=== PATIENT | male | born 1955 | race Caucasian/White ===

== ENCOUNTER 2017-03-05 22:23 | Inpatient (IN) | payer MEDICAID ==
[~2017-03-05] VITALS: Ht 154.4 cm; Wt 69.1 kg
[2017-03-05 23:41] LABS: Albumin 3.3 g/dL (3.4-5.0); BUN/Creatinine Ratio 12.8; Calcium 8.5 mg/dL (8.5-10.1); Magnesium 1.5 mg/dL (1.6-2.6); Potassium 4.1 mmol/L (3.5-5.1)
[2017-03-05 23:46] LABS: Basophils # (auto) 0 uL; Basophils % (auto) 0.3 % (0.0-2.0); CONDITION Y; Eosinophils # (auto) 0.1 uL; Eosinophils % (auto) 0.7 % (0.0-7.0); Hematocrit 47.5 % (41.0-53.0); Hemoglobin 15.8 g/dL (13.5-17.5); Lymphocytes # (auto) 1.8 uL; Lymphocytes % (auto) 14.7 % (10.0-50.0); Mean Corpuscular Hemoglobin 32.1 pg (28.0-32.0); Mean Corpuscular Hgb Conc. 33.1 g/dL (32.0-36.0); Mean Corpuscular Volume 96.9 fL (80.0-100.0); Monocytes # (auto) 1.1 uL; Monocytes % (auto) 9.2 % (0.0-12.0); Neutrophils % (auto) 75.1 % (37.0-80.0); Platelet Count (auto) 193 10^3/uL (140-450); Red Cell Distribution Width 17.1 % (11.6-16.0); White Blood Cell 11.9 10^3/uL (4.4-10.8)
[2017-03-05 23:58] LABS: Bilirubin, Total 1.9 mg/dL (0.2-1.0); Total Protein 6.3 g/dL (6.4-8.2)
[2017-03-06] MEDS ORDERED: ONDANSETRON HCL 4 MG/2 ML VIAL IV ONE (02:30)
[2017-03-06] MEDS ORDERED: HYDROmorphone HCL 2 MG/ML VL IV ONE (02:30)
[2017-03-06] MEDS: SODIUM CHLORIDE 0.9% 1,000 ML IV SCH ×2 (05:37→14:07)
[2017-03-06] MEDS ORDERED: NITROGLYCERIN 0.4 MG SL TAB SL PRN (05:45)
[2017-03-06] MEDS ORDERED: ONDANSETRON HCL 4 MG/2 ML VIAL IV PRN (05:45)
[2017-03-06] MEDS ORDERED: MORPHINE SULF INJ 2 MG/ML SYRINGE 1ML IV PRN ×2 (05:45)
[2017-03-06] MEDS: FAMOTIDINE (10MG/ML) 2ML VL IV SCH ×2 (05:45→17:33)
[2017-03-06] MEDS ORDERED: cefTRIAXone 1GM/50ML D5W 50 ML IV SCH (06:00)
[2017-03-06] MEDS: metroNIDAZOLE 500MG/100ML 100 ML IV SCH ×2 (06:00→12:29)
[2017-03-06 06:09] LABS: INR 1.15 (0.9-1.15); Partial Thromboplastin Time 23.8 sec (22.64-33.71)
[2017-03-06 06:10] LABS: Prothrombin Time 12.5 sec (9.37-12.3)
[2017-03-06 09:20] VITALS: BP 152/86
[2017-03-06] MEDS: ENALAPRIL MALEATE 10 MG TAB PO SCH (10:00)
[2017-03-06] MEDS: METOPROLOL TARTRATE 25 MG TAB PO SCH ×2 (10:00→22:21)
[2017-03-06] MEDS ORDERED: GASTROGRAFIN 120 ML SOL ONE (10:27)
[2017-03-06 13:22] VITALS: BP 128/77
[2017-03-06 16:56] VITALS: BP 125/67
[2017-03-06 22:00] VITALS: BP 122/81
[2017-03-06] MEDS: ATORVASTATIN 20 MG TAB PO SCH (22:20)
[2017-03-07] MEDS: SODIUM CHLORIDE 0.9% 1,000 ML IV SCH ×2 (00:56→05:26)
[2017-03-07] MEDS: FAMOTIDINE (10MG/ML) 2ML VL IV SCH ×2 (05:26→18:02)
[2017-03-07 05:30] VITALS: BP 117/80
[2017-03-07 06:11] LABS: Basophils # (auto) 0 uL; Basophils % (auto) 0.1 % (0.0-2.0); CONDITION Y; Eosinophils # (auto) 0.3 uL; Eosinophils % (auto) 3.4 % (0.0-7.0); Hemoglobin 13.1 g/dL (13.5-17.5); Lymphocytes # (auto) 1.7 uL; Lymphocytes % (auto) 16.8 % (10.0-50.0); Mean Corpuscular Hemoglobin 32.6 pg (28.0-32.0); Mean Corpuscular Hgb Conc. 33.5 g/dL (32.0-36.0); Mean Corpuscular Volume 97.4 fL (80.0-100.0); Monocytes # (auto) 0.9 uL; Neutrophils # (auto) 7.2 uL; Neutrophils % (auto) 70.7 % (37.0-80.0); Platelet Count (auto) 198 10^3/uL (140-450); Red Cell Distribution Width 16.9 % (11.6-16.0); White Blood Cell 10.2 10^3/uL (4.4-10.8)
[2017-03-07 06:37] LABS: Albumin 2.6 g/dL (3.4-5.0); BUN/Creatinine Ratio 18.5; Bilirubin, Total 1.8 mg/dL (0.2-1.0); Calcium 7.7 mg/dL (8.5-10.1); Potassium 4.2 mmol/L (3.5-5.1); Total Protein 5.2 g/dL (6.4-8.2)
[2017-03-07 09:00] VITALS: BP 148/83
[2017-03-07] MEDS ORDERED: LEVO750T64 PO (09:27)
[2017-03-07] MEDS ORDERED: METH4TAB7 PO (09:30)
[2017-03-07] MEDS ORDERED: DOXY100C2 PO (09:30)
[2017-03-07] MEDS: METOPROLOL TARTRATE 25 MG TAB PO SCH ×2 (09:32→22:00)
[2017-03-07] MEDS: ENALAPRIL MALEATE 10 MG TAB PO SCH (09:32)
[2017-03-07 12:45] LABS: Urine RBC None Seen /hpf (0 - 3)
[2017-03-07 13:00] VITALS: BP 126/75
[2017-03-07 13:00] LABS: Urine Bilirubin Negative (Negative); Urine Blood Negative /uL (Negative); Urine Color Yellow (Yellow); Urine Glucose Normal (Normal); Urine Ketone Negative (Negative); Urine Nitrite Negative (Negative); Urine Urobilinogen Normal (Negative)
[2017-03-07 17:00] VITALS: BP 124/77
[2017-03-07 22:00] VITALS: BP 134/84
[2017-03-07] MEDS: ATORVASTATIN 20 MG TAB PO SCH (22:22)
[2017-03-08 05:00] VITALS: BP 148/88
[2017-03-08] MEDS: FAMOTIDINE (10MG/ML) 2ML VL IV SCH ×2 (06:17→19:03)
[2017-03-08] MEDS: SODIUM CHLORIDE 0.9% 1,000 ML IV SCH ×2 (06:17→15:51)
[2017-03-08 06:58] LABS: INR 1.15 (0.9-1.15); Partial Thromboplastin Time 30.2 sec (22.64-33.71)
[2017-03-08 06:59] LABS: Prothrombin Time 12.6 sec (9.37-12.3)
[2017-03-08] MEDS ORDERED: LIDOCAINE 1% HCL (LOCAL ANESTH.) INJ 20ML MDV ONE (08:42)
[2017-03-08] MEDS ORDERED: ceFAZolin 1GM/50ML D5W 50 ML IV ONE (08:43)
[2017-03-08 09:02] VITALS: BP 144/99
[2017-03-08] MEDS ORDERED: IPRATROPIUM BROM 0.5 MG/2.5ML INH SOL NEB ONE (09:45)
[2017-03-08] MEDS ORDERED: ALBUTEROL SULF 2.5 MG/0.5ML(0.5%) NEB SOLN NEB ONE (09:45)
[2017-03-08] MEDS ORDERED: ADENOSINE 58 MG in GIVE UN-DILUTED 0 ML IV ONE (09:45)
[2017-03-08] MEDS: METOPROLOL TARTRATE 25 MG TAB PO SCH ×3 (10:00→22:01)
[2017-03-08] MEDS: ENALAPRIL MALEATE 10 MG TAB PO SCH (10:00)
[2017-03-08] MEDS ORDERED: IPRATROPIUM BROM 0.5 MG/2.5ML INH SOL ONE (12:53)
[2017-03-08] MEDS ORDERED: ALBUTEROL SULF 2.5 MG/0.5ML(0.5%) NEB SOLN ONE (12:53)
[2017-03-08 14:00] VITALS: BP 137/96
[2017-03-08 17:02] VITALS: BP 111/74
[2017-03-08 21:30] VITALS: BP 152/82
[2017-03-08] MEDS: ATORVASTATIN 20 MG TAB PO SCH (22:01)
[2017-03-09] VITALS (7 sets, daily range): BP systolic 107–140; BP diastolic 49–80
[2017-03-09] MEDS: SODIUM CHLORIDE 0.9% 1,000 ML IV SCH ×3 (02:25→21:48)
[2017-03-09] MEDS: FAMOTIDINE (10MG/ML) 2ML VL IV SCH ×2 (05:32→17:42)
[2017-03-09] MEDS: METOPROLOL TARTRATE 25 MG TAB PO SCH ×2 (09:55→21:48)
[2017-03-09] MEDS: ENALAPRIL MALEATE 10 MG TAB PO SCH (09:56)
[2017-03-09] MEDS: ATORVASTATIN 20 MG TAB PO SCH (21:48)
[2017-03-10 06:04] VITALS: BP 137/90
[2017-03-10] MEDS: FAMOTIDINE (10MG/ML) 2ML VL IV SCH ×2 (06:06→18:00)
[2017-03-10 08:00] VITALS: BP 139/74
[2017-03-10 08:50] VITALS: BP 115/82
[2017-03-10] MEDS: METOPROLOL TARTRATE 25 MG TAB PO SCH ×2 (09:23→22:10)
[2017-03-10] MEDS: SODIUM CHLORIDE 0.9% 1,000 ML IV SCH ×2 (09:23→17:59)
[2017-03-10] MEDS: ENALAPRIL MALEATE 10 MG TAB PO SCH (10:00)
[2017-03-10] MEDS ORDERED: ALBUTEROL SULF 2.5 MG/0.5ML(0.5%) NEB SOLN NEB ONE (10:00)
[2017-03-10] MEDS ORDERED: IPRATROPIUM BROM 0.5 MG/2.5ML INH SOL NEB ONE (10:00)
[2017-03-10] MEDS ORDERED: ceFAZolin 1GM/50ML D5W 50 ML IV ONE (10:05)
[2017-03-10] MEDS ORDERED: ALBUTEROL SULF 2.5 MG/0.5ML(0.5%) NEB SOLN ONE (10:06)
[2017-03-10] MEDS ORDERED: IPRATROPIUM BROM 0.5 MG/2.5ML INH SOL ONE (10:06)
[2017-03-10] MEDS ORDERED: MIDAZOLAM HCL 1MG/1ML-2 ML VIAL ONE (12:10)
[2017-03-10] MEDS ORDERED: fentaNYL CITRATE 100 MCG/2 ML VL ONE (12:10)
[2017-03-10] MEDS ORDERED: PROPOFOL 10 MG/ML 20 ML IV ONE (12:10)
[2017-03-10] MEDS ORDERED: ONDANSETRON HCL 4 MG/2 ML VIAL ONE (12:10)
[2017-03-10] MEDS ORDERED: LIDOCAINE W/ EPINEPHRINE 1 % INJ 30ML ONE (12:12)
[2017-03-10] MEDS ORDERED: BUPIVACAINE 0.25% INJ 50ML VIAL ONE (12:13)
[2017-03-10] MEDS ORDERED: ROCURONIUM 10MG/ML 10ML VIAL IV ONE (12:20)
[2017-03-10] MEDS ORDERED: MEPERIDINE HCL (50 MG/ML) 1 ML VIAL IV ONE (12:20)
[2017-03-10] MEDS ORDERED: SUCCINYLCHOLINE CHLORIDE 20 MG/ML 10ML VIAL IV ONE (12:20)
[2017-03-10] MEDS: KETOROLAC TROMETH 30 MG/ML 1ML VIAL IV ONE ×2 (13:15→14:08)
[2017-03-10] MEDS ORDERED: METOCLOPRAMIDE HCL 5MG/ml INJ 2ml VIAL IV ONE (13:15)
[2017-03-10] MEDS: HYDROmorphone HCL 2 MG/ML VL IV PRN ×2 (13:58→14:18)
[2017-03-10 16:49] VITALS: BP 95/58
[2017-03-10] MEDS: ATORVASTATIN 20 MG TAB PO SCH (22:09)
[2017-03-10 22:17] VITALS: BP 103/57
[2017-03-11] MEDS: SODIUM CHLORIDE 0.9% 1,000 ML IV SCH (03:14)
[2017-03-11 05:37] VITALS: BP 104/61
[2017-03-11] MEDS: FAMOTIDINE (10MG/ML) 2ML VL IV SCH (05:40)
[2017-03-11 08:00] VITALS: BP 119/70
[2017-03-11 08:04] VITALS: BP 104/61
[2017-03-11] MEDS: METOPROLOL TARTRATE 25 MG TAB PO SCH (09:23)
[2017-03-11] MEDS: ENALAPRIL MALEATE 10 MG TAB PO SCH (10:28)
[2017-03-11 12:00] VITALS: BP 112/77
[2017-03-11 13:39] VITALS: BP 119/70
== END 2017-03-11 14:40 | disposition home or self-care (01) | DRG 710 ==
LOC: ER 22:32 → TELE 22:33 → TELE-WESTW 03-06 08:50 → TELE-E-ADS 03-06 09:00 → TELE-WESTW 03-06 10:42
PROVIDERS: ADMIT Family Medicine; ATTEND Internal Medicine
PROC: 0YQ60ZZ Repair Left Inguinal Region, Open Approach (ICD-10-PCS; principal; 2017-03-10 12:20)
DX: A41.9 Sepsis, unspecified organism (principal); K40.30 Unilateral inguinal hernia, with obstruction, without gangrene, not specified as recurrent; K76.0 Fatty (change of) liver, not elsewhere classified; I10 Essential (primary) hypertension; I25.10 Atherosclerotic heart disease of native coronary artery without angina pectoris; J44.9 Chronic obstructive pulmonary disease, unspecified; S70.12XA Contusion of left thigh, initial encounter; K57.30 Diverticulosis of large intestine without perforation or abscess without bleeding; F17.210 Nicotine dependence, cigarettes, uncomplicated; Z90.49 Acquired absence of other specified parts of digestive tract; I25.2 Old myocardial infarction; Z87.01 Personal history of pneumonia (recurrent); Z82.49 Family history of ischemic heart disease and other diseases of the circulatory system
CPT/HCPCS: 36415; 71010; 71020; 74176; 74250; 78452; 80053; 80307; 81001; 83690; 83735; 84484; 85025; 85610; 85730; 86850; 86900; 86901; 87081; 93005; 93017; 94640; 96374; 96375; J0153; J0330; J0690; J0696; J1885; J2001; J2250; J2405; J2704; J3490

== ENCOUNTER 2017-11-16 12:45 | Emergency (ER) | payer MEDICAID ==
[~2017-11-16] VITALS: Ht 182.9 cm; Wt 72.6 kg
[~2017-11-16 12:45] MED LIST: DOXY100C2 PO; LEVO750T64 PO; METH4TAB7 PO
[2017-11-16 13:45] LABS: Basophils # (auto) 0 uL; Eosinophils # (auto) 0 uL; Eosinophils % (auto) 0.4 % (0.0-7.0); Hemoglobin 20.4 g/dL (13.5-17.5); Mean Corpuscular Hemoglobin 33.1 pg (28.0-32.0); Platelet Count (auto) 145 10^3/uL (140-450); Red Blood Cells 6.16 10^6/uL (4.5-5.90); White Blood Cell 8.6 10^3/uL (4.4-10.8)
[2017-11-16 13:47] LABS: Basophils % (auto) 0.6 % (0.0-2.0); Lymphocytes # (auto) 1.2 uL; Lymphocytes % (auto) 13.6 % (10.0-50.0); Mean Corpuscular Hgb Conc. 33.5 g/dL (32.0-36.0); Mean Corpuscular Volume 98.7 fL (80.0-100.0); Monocytes # (auto) 0.8 uL; Monocytes % (auto) 8.8 % (0.0-12.0); Neutrophils # (auto) 6.6 uL; Neutrophils % (auto) 76.6 % (37.0-80.0); Red Cell Distribution Width 17.4 % (11.8-14.3)
[2017-11-16 13:49] LABS: Hematocrit 60.8 % (41.0-53.0)
[2017-11-16 14:09] LABS: Albumin 3.8 g/dL (3.4-5.0); BUN/Creatinine Ratio 6.3; Bilirubin, Total 2.1 mg/dL (0.2-1.0); Calcium 8.7 mg/dL (8.5-10.1); Magnesium 1.8 mg/dL (1.6-2.6); Potassium 4.2 mmol/L (3.5-5.1); Total Protein 7.2 g/dL (6.4-8.2)
[2017-11-16] MEDS ORDERED: SODIUM CHLORIDE 0.9% 1,000 ML IV ONE ×2 (14:31)
[2017-11-16 14:56] VITALS: BP 145/107
== END 2017-11-16 16:46 | disposition left against medical advice (07) ==
LOC: ER 12:52
DX: M79.601 Pain in right arm (principal); E86.0 Dehydration; K70.9 Alcoholic liver disease, unspecified; R51 Headache; J44.9 Chronic obstructive pulmonary disease, unspecified; I10 Essential (primary) hypertension; F17.210 Nicotine dependence, cigarettes, uncomplicated
CPT/HCPCS: 36415; 70450; 76705; 80053; 83735; 84484; 85025; 93005; 96360; 96361; 99285; J7030

== ENCOUNTER 2018-05-14 10:09 | Emergency (ER) | payer MEDICARE, MEDICAID ==
[~2018-05-14] VITALS: Ht 182.9 cm; Wt 59.0 kg
[~2018-05-14 10:09] MED LIST changes: -DOXY100C2 PO; -LEVO750T64 PO
[2018-05-14 11:06] LABS: Basophils # (auto) 0.1 uL; Basophils % (auto) 0.7 % (0.0-2.0); Eosinophils # (auto) 0.4 uL; Hematocrit 39.6 % (41.0-53.0); Hemoglobin 13.3 g/dL (13.5-17.5); Lymphocytes # (auto) 2.4 uL; Lymphocytes % (auto) 29.3 % (10.0-50.0); Mean Corpuscular Hemoglobin 31.7 pg (28.0-32.0); Mean Corpuscular Hgb Conc. 33.7 g/dL (32.0-36.0); Mean Corpuscular Volume 94.2 fL (80.0-100.0); Monocytes # (auto) 0.5 uL; Monocytes % (auto) 6.5 % (0.0-12.0); Neutrophils # (auto) 4.9 uL; Neutrophils % (auto) 58.5 % (37.0-80.0); Nucleated Red Blood Cells % 0.2 %; Platelet Count (auto) 259 10^3/uL (140-450); Red Cell Distribution Width 14.7 % (11.8-14.3); White Blood Cell 8.3 10^3/uL (4.4-10.8)
[2018-05-14 11:24] LABS: Albumin 3.4 g/dL (3.4-5.0); Anion Gap 7 (5-15); Blood Urea Nitrogen 11 mg/dL (7-18); Calcium 8.2 mg/dL (8.5-10.1); Carbon Dioxide 24 mmol/L (21-32); Chloride 107 mmol/L (98-107); Glucose 92 mg/dL (74-106); Potassium 3.7 mmol/L (3.5-5.1); Sodium 138 mmol/L (136-145)
[2018-05-14 11:29] LABS: Alanine Aminotransferase 17 U/L (16-61); Alkaline Phosphatase 72 U/L (45-117); Aspartate Aminotransferase 14 U/L (15-37); BUN/Creatinine Ratio 8.3; Bilirubin, Total 0.7 mg/dL (0.2-1.0); GFR African American 69 mL/min; GFR Non-African American 57 mL/min; Total Protein 6.6 g/dL (6.4-8.2)
[2018-05-14] MEDS ORDERED: SODIUM CHLORIDE 0.9% 1,000 ML IV ONE (12:13)
[2018-05-14] MEDS ORDERED: ALBUTEROL SULF 2.5 MG/0.5ML(0.5%) NEB SOLN NEB ONE (12:15)
[2018-05-14] MEDS ORDERED: IPRATROPIUM BROM 0.5 MG/2.5ML INH SOL NEB ONE (12:15)
[2018-05-14 13:03] LABS: Urine Bacteria FEW /hpf (None Seen); Urine Blood Negative /uL (Negative); Urine Mucus FEW (None Seen); Urine Specific Gravity 1.022 (1.001-1.035); Urine WBC 2 /hpf (0 - 3)
[2018-05-14 13:57] VITALS: BP 102/68
== END 2018-05-14 14:57 | disposition home or self-care (01) ==
LOC: ER 10:09
DX: J44.1 Chronic obstructive pulmonary disease with (acute) exacerbation (principal); E03.9 Hypothyroidism, unspecified; I10 Essential (primary) hypertension; Z86.73 Personal history of transient ischemic attack (TIA), and cerebral infarction without residual deficits; Z90.49 Acquired absence of other specified parts of digestive tract; Z87.891 Personal history of nicotine dependence
CPT/HCPCS: 36415; 71045; 80053; 81001; 83735; 84443; 84484; 85025; 85379; 93005; 94640; 94761; 99285; J7030; J7611; J7644

== ENCOUNTER → 2019-10-06 | Emergency (ER) | payer MEDICARE ==
[~2019-10-06] VITALS: Ht 188 cm; Wt 51.7 kg
[~2019-10-06] MED LIST changes: +AMIO200T33 PO; +LOVA20TA4 PO
[2019-10-06 13:14] VITALS: BP 110/65
[2019-10-06 15:04] LABS: Basophils # (auto) 0 10 ^3/uL (0-0.2); Basophils % (auto) 0.4 % (0.0-2.0); Eosinophils # (auto) 0.1 10 ^3/uL (0-0.8); Eosinophils % (auto) 1.6 % (0.0-7.0); Hematocrit 36.7 % (41.0-53.0); Lymphocytes # (auto) 1.4 10 ^3/uL (0.4-5.4); Lymphocytes % (auto) 19.8 % (10.0-50.0); Mean Corpuscular Hemoglobin 30.2 pg (28.0-32.0); Mean Corpuscular Hgb Conc. 32.5 g/dL (32.0-36.0); Mean Corpuscular Volume 92.8 fL (80.0-100.0); Monocytes # (auto) 0.5 10 ^3/uL (0-1.3); Monocytes % (auto) 7.1 % (0.0-12.0); Neutrophils # (auto) 5.1 10 ^3/uL (1.6-8.6); Neutrophils % (auto) 71.1 % (37.0-80.0); Nucleated Red Blood Cells % 0.1 %; Platelet Count (auto) 441 10^3/uL (140-450); Red Blood Cells 3.96 10^6/uL (4.5-5.90); Red Cell Distribution Width 16.2 % (11.8-14.3); White Blood Cell 7.2 10^3/uL (4.4-10.8)
[2019-10-06 15:19] LABS: Albumin 3.1 g/dL (3.4-5.0); Anion Gap 5 (5-15); Blood Urea Nitrogen 25 mg/dL (7-18); Calcium 8.8 mg/dL (8.5-10.1); Carbon Dioxide 22 mmol/L (21-32); Chloride 111 mmol/L (98-107); Glucose 99 mg/dL (74-106); Potassium 4.1 mmol/L (3.5-5.1); Sodium 138 mmol/L (136-145)
[2019-10-06 15:22] LABS: Alanine Aminotransferase 27 U/L (16-61); Aspartate Aminotransferase 19 U/L (15-37); BUN/Creatinine Ratio 24.3; GFR African American 93 mL/min; GFR Non-African American 77 mL/min
[2019-10-06 15:38] LABS: Alkaline Phosphatase 84 U/L (45-117); Bilirubin, Total 0.4 mg/dL (0.2-1.0); Total Protein 7.7 g/dL (6.4-8.2)
== END | disposition home or self-care (01) ==
LOC: ER 12:52
DX: R10.84 Generalized abdominal pain (principal); R05 Cough; I11.0 Hypertensive heart disease with heart failure; I50.9 Heart failure, unspecified; J44.9 Chronic obstructive pulmonary disease, unspecified; E78.5 Hyperlipidemia, unspecified; Z90.49 Acquired absence of other specified parts of digestive tract; Z79.899 Other long term (current) drug therapy
CPT/HCPCS: 36415; 71046; 80053; 84484; 85025

== ENCOUNTER 2023-07-16 11:04 | Inpatient (IN) | payer MEDICARE ==
[~2023-07-16] VITALS: Ht 180.3 cm; Wt 60.0 kg
[~2023-07-16 11:04] MED LIST changes: -METH4TAB7 PO; +METH4TAB9 PO
[2023-07-16] MEDS ORDERED: SODIUM CHLORIDE 0.9% 1,000 ML IVB ONE (11:30)
[2023-07-16 12:04] LABS: Basophils # (auto) 0.1 10 ^3/uL (0-0.2); Basophils % (auto) 0.4 % (0.0-2.0); Eosinophils # (auto) 0 10 ^3/uL (0-0.8); Eosinophils % (auto) 0.1 % (0.0-7.0); Hemoglobin 13.2 g/dL (13.5-17.5); Lymphocytes % (auto) 5.7 % (10.0-50.0); Mean Corpuscular Hemoglobin 29.6 pg (28.0-32.0); Mean Corpuscular Hgb Conc. 32.1 g/dL (32.0-36.0); Mean Corpuscular Volume 92.4 fL (80.0-100.0); Monocytes # (auto) 0.9 10 ^3/uL (0-1.3); Monocytes % (auto) 5.3 % (0.0-12.0); Neutrophils # (auto) 15.2 10 ^3/uL (1.6-8.6); Neutrophils % (auto) 88.5 % (37.0-80.0); Red Blood Cells 4.44 10^6/uL (4.5-5.90); Red Cell Distribution Width 15.1 % (11.8-14.3); White Blood Cell 17.2 10^3/uL (4.4-10.8)
[2023-07-16 12:19] LABS: INR 1.14 (0.9-1.15); Partial Thromboplastin Time 29.3 SEC (24.5-34.5); Prothrombin Time 11.9 sec (9.3-11.8)
[2023-07-16 12:26] LABS: Alanine Aminotransferase 22 U/L (7-40); Albumin 4.3 g/dL (3.2-4.8); Alkaline Phosphatase 99 U/L (46-116); Anion Gap 8 (5-15); Aspartate Aminotransferase 17 U/L (13-40); BUN/Creatinine Ratio 16.9 (10.0-20.0); Bilirubin, Total 0.6 mg/dL (0.2-1.0); Blood Urea Nitrogen 22 mg/dL (9-23); Carbon Dioxide 25 mmol/L (20-30); Chloride 106 mmol/L (98-107); Glucose 108 mg/dL (74-106); Magnesium 2.2 mg/dL (1.6-2.6); Potassium 4.3 mmol/L (3.5-5.1); Sodium 139 mmol/L (136-145); Total Protein 7.5 g/dL (5.7-8.2)
[2023-07-16 13:25] LABS: Rapid Influenza A Negative (Negative); Rapid Influenza B Negative (Negative)
[2023-07-16 13:26] LABS: COVID19 ANTIGEN SOFIA FIA NEGATIVE (NEGATIVE)
[2023-07-16] MEDS ORDERED: levoFLOXacin 750MG 150 ML IV ONE (13:30)
[2023-07-16] MEDS ORDERED: DexAMETHasone SOD PHOS 10MG/1ML VIAL INJ IV ONE (13:30)
[2023-07-16] MEDS ORDERED: MORPHINE SULFATE INJ 2 MG/ml SYRG IV PRN (14:45)
[2023-07-16] MEDS ORDERED: ACETAMINOPHEN 325 MG TAB PO PRN (14:45)
[2023-07-16] MEDS ORDERED: HYDROcodone-ACET 5/325MG TAB PO PRN (14:45)
[2023-07-16] MEDS ORDERED: NITROGLYCERIN 0.4 MG SL TAB SL PRN (14:45)
[2023-07-16] MEDS ORDERED: ONDANSETRON HCL 4 MG/2 ML VIAL IV PRN (14:45)
[2023-07-16] MEDS ORDERED: BUDESONIDE (INHALATION) 0.5 MG/2 ML NEB ONE (18:21)
[2023-07-16 18:30] VITALS: O2SAT 96
[2023-07-16 19:00] VITALS: BP 109/50; PULSE 64; RESP 18; TEMP 97.6; O2SAT 96
[2023-07-16] MEDS: MIRTAZAPINE 30 MG TAB PO SCH (22:00)
[2023-07-16] MEDS: BUDESONIDE (INHALATION) 0.5 MG/2 ML NEB NEB SCH (22:00)
[2023-07-16] MEDS: MELATONIN 5 MG TAB PO SCH (22:00)
[2023-07-17] VITALS (10 sets, daily range): BP systolic 110–133; BP diastolic 62–71; PULSE 56–81; RESP 16–18; TEMP 97.6–98.7; O2SAT 91–100
[2023-07-17] MEDS: SODIUM CHLORIDE 0.9% 1,000 ML IV SCH ×3 (00:01→18:38)
[2023-07-17] MEDS ORDERED: ASPI-325 PO (00:15)
[2023-07-17] MEDS ORDERED: THIA100T10 PO (00:15)
[2023-07-17] MEDS ORDERED: ASCO500T11 PO (00:15)
[2023-07-17] MEDS ORDERED: MAGN400T6 PO (00:15)
[2023-07-17] MEDS ORDERED: LACT10SO3 PO (00:15)
[2023-07-17 06:06] LABS: Basophils # (auto) 0 10 ^3/uL (0-0.2); Basophils % (auto) 0.2 % (0.0-2.0); Eosinophils # (auto) 0 10 ^3/uL (0-0.8); Eosinophils % (auto) 0.1 % (0.0-7.0); Hematocrit 38.2 % (41.0-53.0); Lymphocytes # (auto) 1.4 10 ^3/uL (0.4-5.4); Lymphocytes % (auto) 10.3 % (10.0-50.0); Mean Corpuscular Hemoglobin 29.3 pg (28.0-32.0); Mean Corpuscular Hgb Conc. 31.5 g/dL (32.0-36.0); Mean Corpuscular Volume 93.1 fL (80.0-100.0); Monocytes # (auto) 1.1 10 ^3/uL (0-1.3); Monocytes % (auto) 8.1 % (0.0-12.0); Neutrophils # (auto) 10.7 10 ^3/uL (1.6-8.6); Neutrophils % (auto) 81.3 % (37.0-80.0); Nucleated Red Blood Cells % 0.1 %; Red Cell Distribution Width 15.4 % (11.8-14.3); White Blood Cell 13.1 10^3/uL (4.4-10.8)
[2023-07-17] MEDS ORDERED: ALBUTEROL SULF 2.5 MG/0.5ML(0.5%) NEB SOLN ONE (06:13)
[2023-07-17] MEDS ORDERED: BUDESONIDE (INHALATION) 0.5 MG/2 ML NEB ONE (06:13)
[2023-07-17 06:24] LABS: Alanine Aminotransferase 16 U/L (7-40); Alkaline Phosphatase 84 U/L (46-116); Anion Gap 9 (5-15); Aspartate Aminotransferase 18 U/L (13-40); BUN/Creatinine Ratio 14.4 (10.0-20.0); Blood Urea Nitrogen 17 mg/dL (9-23); Calcium 8.9 mg/dL (8.7-10.4); Carbon Dioxide 21 mmol/L (20-30); Chloride 110 mmol/L (98-107); Glucose 93 mg/dL (74-106); Sodium 140 mmol/L (136-145)
[2023-07-17 06:25] LABS: Bilirubin, Total 0.6 mg/dL (0.2-1.0); Total Protein 7.1 g/dL (5.7-8.2)
[2023-07-17] MEDS: BUDESONIDE (INHALATION) 0.5 MG/2 ML NEB NEB SCH ×2 (06:47→18:10)
[2023-07-17] MEDS: ALBUTEROL SULF 2.5 MG/0.5ML(0.5%) NEB SOLN NEB PRN ×2 (06:47→18:10)
[2023-07-17] MEDS: ASPirin 81 mg TAB PO SCH (10:00)
[2023-07-17] MEDS ORDERED: ENOXAPARIN SOD 40 MG/0.4 ML SYRINGE SC ONE (10:33)
[2023-07-17] MEDS ORDERED: cefTRIAXone 1GM/50ML D5W 50 ML IV ONE (10:33)
[2023-07-17] MEDS ORDERED: AZITHROMYCIN 500MG/ 250ML 250 ML IV ONE (10:34)
[2023-07-17] MEDS: ENOXAPARIN SOD 40 MG/0.4 ML SYRINGE SC SCH (10:42)
[2023-07-17] MEDS: cefTRIAXone 1GM/50ML D5W 50 ML IV SCH (10:42)
[2023-07-17] MEDS: AZITHROMYCIN 500MG/ 250ML 250 ML IV SCH (10:42)
[2023-07-17] MEDS: MIRTAZAPINE 30 MG TAB PO SCH (21:32)
[2023-07-17] MEDS: MELATONIN 5 MG TAB PO SCH (21:32)
[2023-07-18] VITALS (11 sets, daily range): BP systolic 103–127; BP diastolic 60–67; PULSE 71–78; RESP 18–20; TEMP 97.8–100.6; O2SAT 87–100
[2023-07-18 06:49] LABS: Basophils # (auto) 0 10 ^3/uL (0-0.2); Basophils % (auto) 0.1 % (0.0-2.0); Eosinophils # (auto) 0 10 ^3/uL (0-0.8); Hematocrit 36.2 % (41.0-53.0); Hemoglobin 11.8 g/dL (13.5-17.5); Lymphocytes # (auto) 0.9 10 ^3/uL (0.4-5.4); Lymphocytes % (auto) 4.1 % (10.0-50.0); Mean Corpuscular Hemoglobin 29.7 pg (28.0-32.0); Mean Corpuscular Hgb Conc. 32.6 g/dL (32.0-36.0); Mean Corpuscular Volume 91.2 fL (80.0-100.0); Monocytes # (auto) 1.5 10 ^3/uL (0-1.3); Neutrophils # (auto) 18.7 10 ^3/uL (1.6-8.6); Neutrophils % (auto) 88.8 % (37.0-80.0); Red Blood Cells 3.96 10^6/uL (4.5-5.90); Red Cell Distribution Width 14.8 % (11.8-14.3); White Blood Cell 21.1 10^3/uL (4.4-10.8)
[2023-07-18] MEDS: BUDESONIDE (INHALATION) 0.5 MG/2 ML NEB NEB SCH ×2 (09:07→21:55)
[2023-07-18] MEDS: ALBUTEROL SULF 2.5 MG/0.5ML(0.5%) NEB SOLN NEB PRN (09:07)
[2023-07-18] MEDS: cefTRIAXone 1GM/50ML D5W 50 ML IV SCH (10:05)
[2023-07-18] MEDS: ENOXAPARIN SOD 40 MG/0.4 ML SYRINGE SC SCH (10:05)
[2023-07-18] MEDS: SODIUM CHLORIDE 0.9% 1,000 ML IV SCH (10:06)
[2023-07-18] MEDS: ASPirin 81 mg TAB PO SCH (10:06)
[2023-07-18] MEDS: AZITHROMYCIN 500MG/ 250ML 250 ML IV SCH (12:54)
[2023-07-18] MEDS ORDERED: VANCOMYCIN PER PHARMACY 0 MG IV SCH (14:45)
[2023-07-18] MEDS ORDERED: VANCOMYCIN 750mg/250ml 250 ML IV ONE (15:15)
[2023-07-18] MEDS ORDERED: VANCOMYCIN 1GM/200ML 0 ML IV ONE (15:27)
[2023-07-18] MEDS: MIRTAZAPINE 30 MG TAB PO SCH (22:00)
[2023-07-18] MEDS: MELATONIN 5 MG TAB PO SCH (22:00)
[2023-07-18] MEDS: PIPERACILLIN-TAZOB 3.375GM 100 ML IV SCH (23:24)
[2023-07-19] VITALS (10 sets, daily range): BP systolic 99–125; BP diastolic 57–68; PULSE 71–85; RESP 16–26; TEMP 97.2–99.9; O2SAT 91–97
[2023-07-19] MEDS: SODIUM CHLORIDE 0.9% 1,000 ML IV SCH ×3 (06:00→23:45)
[2023-07-19] MEDS: MORPHINE SULFATE INJ 2 MG/ml SYRG IV PRN ×2 (06:11→23:19)
[2023-07-19] MEDS: PIPERACILLIN-TAZOB 3.375GM 100 ML IV SCH ×3 (06:12→22:00)
[2023-07-19 06:58] LABS: Alanine Aminotransferase 22 U/L (7-40); Albumin 3.8 g/dL (3.2-4.8); Alkaline Phosphatase 80 U/L (46-116); Anion Gap 11 (5-15); Aspartate Aminotransferase 42 U/L (13-40); Blood Urea Nitrogen 16 mg/dL (9-23); Calcium 9.2 mg/dL (8.5-10.1); Carbon Dioxide 23 mmol/L (20-30); Chloride 109 mmol/L (98-107); Glucose 101 mg/dL (74-106); Potassium 3.8 mmol/L (3.5-5.1); Sodium 143 mmol/L (136-145)
[2023-07-19 06:59] LABS: Bilirubin, Total 0.6 mg/dL (0.2-1.0); Total Protein 6.8 g/dL (5.7-8.2)
[2023-07-19 07:00] LABS: Basophils # (auto) 0.1 10 ^3/uL (0-0.2); Basophils % (auto) 0.3 % (0.0-2.0); Eosinophils # (auto) 0 10 ^3/uL (0-0.8); Hematocrit 39.2 % (41.0-53.0); Hemoglobin 12.4 g/dL (13.5-17.5); Mean Corpuscular Hemoglobin 29.1 pg (28.0-32.0); Mean Corpuscular Hgb Conc. 31.6 g/dL (32.0-36.0); Mean Corpuscular Volume 92.3 fL (80.0-100.0); Monocytes % (auto) 6.4 % (0.0-12.0); Neutrophils # (auto) 13.8 10 ^3/uL (1.6-8.6); Neutrophils % (auto) 87.3 % (37.0-80.0); Red Blood Cells 4.25 10^6/uL (4.5-5.90); Red Cell Distribution Width 15.2 % (11.8-14.3); White Blood Cell 15.8 10^3/uL (4.4-10.8)
[2023-07-19] MEDS ORDERED: VANCOMYCIN 750mg/250ml 250 ML IV SCH (08:00)
[2023-07-19] MEDS: BUDESONIDE (INHALATION) 0.5 MG/2 ML NEB NEB SCH ×2 (09:28→20:40)
[2023-07-19] MEDS: ALBUTEROL SULF 2.5 MG/0.5ML(0.5%) NEB SOLN NEB PRN ×2 (09:28→20:40)
[2023-07-19] MEDS: ASPirin 81 mg TAB PO SCH (10:00)
[2023-07-19] MEDS: ENOXAPARIN SOD 40 MG/0.4 ML SYRINGE SC SCH (10:50)
[2023-07-19] MEDS: VANCOMYCIN 750mg/250ml 250 ML IV SCH ×2 (11:08→23:16)
[2023-07-19] MEDS: MIRTAZAPINE 30 MG TAB PO SCH (22:32)
[2023-07-19] MEDS: MELATONIN 5 MG TAB PO SCH (22:32)
[2023-07-20] VITALS (11 sets, daily range): BP systolic 101–124; BP diastolic 60–68; PULSE 64–78; RESP 18–24; TEMP 97.2–98; O2SAT 93–100
[2023-07-20] MEDS: MORPHINE SULFATE INJ 2 MG/ml SYRG IV PRN ×2 (05:18→13:07)
[2023-07-20] MEDS: PIPERACILLIN-TAZOB 3.375GM 100 ML IV SCH (05:19)
[2023-07-20 06:20] LABS: Basophils # (auto) 0 10 ^3/uL (0-0.2); Basophils % (auto) 0.1 % (0.0-2.0); Eosinophils # (auto) 0 10 ^3/uL (0-0.8); Hematocrit 34.8 % (41.0-53.0); Hemoglobin 11.3 g/dL (13.5-17.5); Lymphocytes # (auto) 1.5 10 ^3/uL (0.4-5.4); Lymphocytes % (auto) 7.7 % (10.0-50.0); Mean Corpuscular Hemoglobin 29.8 pg (28.0-32.0); Mean Corpuscular Hgb Conc. 32.4 g/dL (32.0-36.0); Monocytes % (auto) 5.2 % (0.0-12.0); Neutrophils # (auto) 16.6 10 ^3/uL (1.6-8.6); Red Blood Cells 3.79 10^6/uL (4.5-5.90); Red Cell Distribution Width 15.4 % (11.8-14.3)
[2023-07-20 06:32] LABS: Chloride 109 mmol/L (98-107); Potassium 3.6 mmol/L (3.5-5.1); Sodium 141 mmol/L (136-145)
[2023-07-20 06:33] LABS: Anion Gap 10 (5-15); Carbon Dioxide 22 mmol/L (20-30)
[2023-07-20 06:38] LABS: BUN/Creatinine Ratio 17.3 (10.0-20.0); Blood Urea Nitrogen 17 mg/dL (9-23); Glucose 96 mg/dL (74-106)
[2023-07-20 06:59] LABS: Urine Bacteria NONE SEEN /hpf (None Seen); Urine Blood Negative /uL (Negative); Urine Clarity HAZY (Clear); Urine Color Yellow (Yellow); Urine Protein, UAD 1+ (Negative); Urine Specific Gravity 1.035 (1.001-1.035); Urine Urobilinogen Normal (Negative); Urine WBC 2 /hpf (0 - 3); Urine pH 5.5 (5.0-8.0)
[2023-07-20] MEDS ORDERED: ERGOCALCIFEROL 50,000 UNIT(1.25MG) CAP PO SCH (07:45)
[2023-07-20] MEDS: ASPirin 81 mg TAB PO SCH (09:47)
[2023-07-20] MEDS: ALBUTEROL SULF 2.5 MG/0.5ML(0.5%) NEB SOLN NEB PRN (09:54)
[2023-07-20] MEDS: BUDESONIDE (INHALATION) 0.5 MG/2 ML NEB NEB SCH ×2 (09:55→19:06)
[2023-07-20] MEDS: ENOXAPARIN SOD 40 MG/0.4 ML SYRINGE SC SCH (10:00)
[2023-07-20] MEDS: SODIUM CHLORIDE 0.9% 1,000 ML IV SCH (11:55)
[2023-07-20] MEDS: VANCOMYCIN 750mg/250ml 250 ML IV SCH ×2 (11:55→23:20)
[2023-07-20] MEDS ORDERED: AZITHROMYCIN 500MG/ 250ML 250 ML IV ONE (12:15)
[2023-07-20] MEDS: FLUCONAZOLE 200MG/100ML 100 ML IV SCH ×2 (13:00→14:00)
[2023-07-20] MEDS ORDERED: levoFLOXacin 750MG 150 ML IV ONE (15:15)
[2023-07-20] MEDS: MELATONIN 5 MG TAB PO SCH (21:25)
[2023-07-20] MEDS: MIRTAZAPINE 30 MG TAB PO SCH (21:25)
[2023-07-21] VITALS (11 sets, daily range): BP systolic 119–126; BP diastolic 66–69; PULSE 76–107; RESP 16–22; TEMP 98–99.2; O2SAT 92–99
[2023-07-21] MEDS: SODIUM CHLORIDE 0.9% 1,000 ML IV SCH ×2 (02:25→15:50)
[2023-07-21] MEDS: ALBUTEROL SULF 2.5 MG/0.5ML(0.5%) NEB SOLN NEB PRN ×2 (06:37→14:22)
[2023-07-21] MEDS: BUDESONIDE (INHALATION) 0.5 MG/2 ML NEB NEB SCH ×2 (06:37→18:38)
[2023-07-21 07:33] LABS: Basophils # (auto) 0.1 10 ^3/uL (0-0.2); Basophils % (auto) 0.4 % (0.0-2.0); Chloride 108 mmol/L (98-107); Eosinophils # (auto) 0 10 ^3/uL (0-0.8); Eosinophils % (auto) 0.2 % (0.0-7.0); Hematocrit 34.8 % (41.0-53.0); Hemoglobin 11.1 g/dL (13.5-17.5); Lymphocytes # (auto) 1.1 10 ^3/uL (0.4-5.4); Lymphocytes % (auto) 6.7 % (10.0-50.0); Mean Corpuscular Hemoglobin 29.2 pg (28.0-32.0); Mean Corpuscular Hgb Conc. 31.9 g/dL (32.0-36.0); Mean Corpuscular Volume 91.6 fL (80.0-100.0); Monocytes # (auto) 0.8 10 ^3/uL (0-1.3); Monocytes % (auto) 5.1 % (0.0-12.0); Neutrophils # (auto) 13.7 10 ^3/uL (1.6-8.6); Neutrophils % (auto) 87.6 % (37.0-80.0); Nucleated Red Blood Cells % 0.1 %; Potassium 3.5 mmol/L (3.5-5.1); Sodium 142 mmol/L (136-145); White Blood Cell 15.6 10^3/uL (4.4-10.8)
[2023-07-21 07:34] LABS: Anion Gap 10 (5-15); Carbon Dioxide 24 mmol/L (20-30)
[2023-07-21 07:35] LABS: Calcium 8.7 mg/dL (8.5-10.1)
[2023-07-21 07:39] LABS: Glucose 84 mg/dL (74-106)
[2023-07-21 07:40] LABS: BUN/Creatinine Ratio 16.8 (10.0-20.0); Blood Urea Nitrogen 17 mg/dL (9-23)
[2023-07-21] MEDS ORDERED: levoFLOXacin 750MG 150 ML IV SCH (10:00)
[2023-07-21] MEDS ORDERED: AZITHROMYCIN 500MG/ 250ML 250 ML IV SCH (10:00)
[2023-07-21 11:44] LABS: Alkaline Phosphatase 76 U/L (46-116)
[2023-07-21 11:45] LABS: Alanine Aminotransferase 28 U/L (7-40); Albumin 3.4 g/dL (3.2-4.8); Aspartate Aminotransferase 36 U/L (13-40); Bilirubin, Total 0.5 mg/dL (0.2-1.0); Total Protein 6.2 g/dL (5.7-8.2)
[2023-07-21] MEDS: VANCOMYCIN 750mg/250ml 250 ML IV SCH ×2 (12:07→23:15)
[2023-07-21] MEDS: FLUCONAZOLE 200MG/100ML 100 ML IV SCH (12:49)
[2023-07-21] MEDS: ASPirin 81 mg TAB PO SCH (12:50)
[2023-07-21] MEDS: levoFLOXacin 750MG 150 ML IV SCH (14:00)
[2023-07-21 15:20] LABS: Iron 13 ug/dL (65-175)
[2023-07-21 15:52] LABS: Total Iron Binding Capacity > 670 ug/dL (250-425)
[2023-07-21] MEDS: MELATONIN 5 MG TAB PO SCH (22:00)
[2023-07-21] MEDS: MIRTAZAPINE 30 MG TAB PO SCH (22:00)
[2023-07-22] MEDS ORDERED: VANCOMYCIN 1GM/200ML 200 ML IV SCH (00:15)
[2023-07-22 00:29] VITALS: BP 119/69; PULSE 100; RESP 20; O2SAT 92
[2023-07-22] MEDS: SODIUM CHLORIDE 0.9% 1,000 ML IV SCH (06:47)
[2023-07-22 06:49] VITALS: PULSE 84; RESP 20; O2SAT 95
[2023-07-22] MEDS: ALBUTEROL SULF 2.5 MG/0.5ML(0.5%) NEB SOLN NEB PRN (06:49)
[2023-07-22] MEDS: BUDESONIDE (INHALATION) 0.5 MG/2 ML NEB NEB SCH (06:49)
[2023-07-22 06:59] VITALS: PULSE 84; RESP 20; O2SAT 97
[2023-07-22 08:06] LABS: PSA Free 2.75 ng/mL; Prostate Specific Antigen 6.4 ng/mL (0.0-4.0)
[2023-07-22 08:23] LABS: Basophils # (auto) 0 10 ^3/uL (0-0.2); Basophils % (auto) 0.1 % (0.0-2.0); Eosinophils # (auto) 0 10 ^3/uL (0-0.8); Hemoglobin 11.2 g/dL (13.5-17.5); Lymphocytes # (auto) 0.9 10 ^3/uL (0.4-5.4); Lymphocytes % (auto) 4.4 % (10.0-50.0); Mean Corpuscular Hemoglobin 29.7 pg (28.0-32.0); Mean Corpuscular Volume 92.9 fL (80.0-100.0); Monocytes % (auto) 5.1 % (0.0-12.0); Neutrophils # (auto) 18.2 10 ^3/uL (1.6-8.6); Neutrophils % (auto) 90.4 % (37.0-80.0); Red Blood Cells 3.76 10^6/uL (4.5-5.90); Red Cell Distribution Width 15.2 % (11.8-14.3); White Blood Cell 20.1 10^3/uL (4.4-10.8)
[2023-07-22 08:42] LABS: Alanine Aminotransferase 29 U/L (7-40); Albumin 3.4 g/dL (3.2-4.8); Alkaline Phosphatase 76 U/L (46-116); Anion Gap 12 (5-15); Aspartate Aminotransferase 35 U/L (13-40); BUN/Creatinine Ratio 15.1 (10.0-20.0); Blood Urea Nitrogen 13 mg/dL (9-23); Calcium 8.7 mg/dL (8.5-10.1); Carbon Dioxide 23 mmol/L (20-30); Chloride 107 mmol/L (98-107); Glucose 97 mg/dL (74-106); Potassium 3.2 mmol/L (3.5-5.1); Sodium 142 mmol/L (136-145)
[2023-07-22 08:43] LABS: Bilirubin, Total 0.6 mg/dL (0.2-1.0); Total Protein 6.2 g/dL (5.7-8.2)
[2023-07-22 08:43] LABS: Hepatitis B Surface Antigen Negative (Negative)
[2023-07-22 09:00] VITALS: BP 112/70; PULSE 94; RESP 24; O2SAT 94
[2023-07-22 09:04] LABS: Hepatitis A Ab IgM Negative; Hepatitis B Core IgM Negative
[2023-07-22 09:05] LABS: Hepatitis C Antibody Negative (Negative)
[2023-07-22] MEDS: levoFLOXacin 750MG 150 ML IV SCH (09:06)
[2023-07-22] MEDS: FLUCONAZOLE 200MG/100ML 100 ML IV SCH (09:06)
[2023-07-22] MEDS: ASPirin 81 mg TAB PO SCH (09:08)
[2023-07-22] MEDS ORDERED: CLINIMIX PER PHARMACY 0 ML IV SCH (09:15)
[2023-07-22] MEDS ORDERED: POTASSIUM CHL 20MEQ/100ML 100 ML IV ONE (10:00)
[2023-07-22] MEDS: ALBUTEROL SULF 2.5 MG/0.5ML(0.5%) NEB SOLN NEB SCH ×2 (11:00→14:00)
[2023-07-22 11:33] LABS: Phosphorus 3.1 mg/dL (2.4-5.1)
[2023-07-22] MEDS ORDERED: IRON SUCROSE COMPLEX 100 ML IV SCH (12:00)
[2023-07-22] MEDS ORDERED: SODIUM FERR GLUC 125 MG in NS 100 ML IV SCH (12:21)
[2023-07-22 15:23] LABS: Magnesium 1.9 mg/dL (1.6-2.6)
[2023-07-22] MEDS ORDERED: AMINO ACID INFUSION IN D10W 1,000 ML IV NR (20:00)
== END 2023-07-22 15:55 | DRG 871 ==
LOC: ER 11:04 → EDBD 11:04 → OVERFLOW 14:49 → WEST WING 23:11 → TELE-WESTW 07-20 13:05
PROVIDERS: ADMIT Internal Medicine; ATTEND Internal Medicine
DX: A41.89 Other specified sepsis (principal); G92.9 Unspecified toxic encephalopathy; J96.00 Acute respiratory failure, unspecified whether with hypoxia or hypercapnia; J15.69 Pneumonia due to other Gram-negative bacteria; J44.0 Chronic obstructive pulmonary disease with (acute) lower respiratory infection; F02.83 Dementia in other diseases classified elsewhere, unspecified severity, with mood disturbance; Z68.1 Body mass index [BMI] 19.9 or less, adult; D64.9 Anemia, unspecified; H91.90 Unspecified hearing loss, unspecified ear; Z66 Do not resuscitate; R62.7 Adult failure to thrive; F32.A Depression, unspecified; R31.9 Hematuria, unspecified; E55.9 Vitamin D deficiency, unspecified; R47.81 Slurred speech; Z20.822 Contact with and (suspected) exposure to COVID-19; Z90.49 Acquired absence of other specified parts of digestive tract; Z86.73 Personal history of transient ischemic attack (TIA), and cerebral infarction without residual deficits
CPT/HCPCS: 36415; 70450; 71045; 71250; 76705; 76775; 80048; 80053; 80074; 80202; 81001; 82140; 82306; 82607; 82746; 82962; 83540; 83550; 83605; 83735; 84100; 84154; 84443; 84484; 85025; 85379; 85610; 85730; 86703; 87040; 87077; 87086; 87186; 87426; 87804; 92610; 93005; 93971; 94640; G0378; J1450; J1756; J1956; J2543